=== PATIENT | female | born 1975 | race American Indian/Alaskan Native ===

== ENCOUNTER 2018-01-03 11:31 | Inpatient (IN) | payer MEDICARE ==
[2018-01-03] MEDS ORDERED: MORPHINE IV ONE (12:16)
[2018-01-03] MEDS ORDERED: ZOFRAN IV ONE (12:16)
--- NOTE | 2018-01-03 12:20 | Emergency Department Report ---
ED General Adult HPI - General Chief complaint: Weakness Stated complaint: GENERAL WEAKNESS Time Seen by Provider: 01/03/18 11:55 Source: patient Mode of arrival: Stretcher Limitations: No Limitations - History of Present Illness Initial comments: Mrs. Baez is a very pleasant 42-year-old female with history of end-stage renal disease on hemodialysis for the past 11 years. She also has a history of coronary artery disease status post CABG. She has a history of diabetes. Ms. Baez lives in [facility]. She is currently staying at a hotel with her fianc for her daughter's wedding. She is quite upset because she is likely going to miss her daughter's wedding which is scheduled to began within the next 2 hours. She presents with generalized weakness and overall tingling throughout her body. She is highly concerned for hypocalcemia. On December 11, she had resection of her parathyroid glands. She is currently taking Tums for calcium supplementation. [place] hemod[place] in [place] hometown. She arranged for dialysis session tomorrow scheduled at [facility] on [facility]. -: Gradual, days(s) (1) Location: upper extremity, lower extremity Severity scale (0 -10): 8 Quality: other (tingling) Consistency: constant Improves with: cold therapy Worsens with: none Associated Symptoms: malaise. denies: confusion, chest pain, cough, diaphoresis , fever/chills, headaches, loss of appetite, nausea/vomiting, rash, seizure, shortness of breath, syncope, weakness - Related Data Home Medications Medication Instructions Recorded Confirmed Last Taken Acetaminophen [Tylenol Extra 500 mg PO DAILY PRN 01/03/18 01/03/18 Unknown Strength] Aspirin [Aspirin BABY CHEW TAB] 81 mg PO DAILY 01/03/18 01/03/18 Unknown Calcium Carbonate [Tums] 1 tab PO DAILY 01/03/18 01/03/18 Unknown LORazepam [Ativan] 0.5 mg PO Q6H PRN 01/03/18 01/03/18 Unknown Sevelamer Carbonate [Renvela] 650 mg PO AC 01/03/18 01/03/18 Unknown amLODIPine [Norvasc] 10 mg PO DAILY 01/03/18 01/03/18 Unknown Allergies Allergy/AdvReac Type Severity Reaction Status Date / Time Sulfa (Sulfonamide Allergy Hives Verified 01/03/18 11:42 Antibiotics) ED Review of Systems ROS: Stated complaint: GENERAL WEAKNESS Other details as noted in HPI Comment: All other systems reviewed and negative Constitutional: denies: fever, malaise Respiratory: denies: cough Cardiovascular: denies: chest pain ED Past Medical Hx - Past Medical History Hx Hypertension: Yes Hx Diabetes: Yes Hx Renal Disease: Yes (Dialysis M-W-F) Additional medical history: Scoliosis, Glacoma, Cataracts - Surgical History Additional Surgical History: Left 3rd and 5th toe amputation, A.V graft left arm , Cardia double Bypass, thyroidectomy - Social History Smoking Status: Former Smoker Substance Use Type: None - Medications Home Medications: Home Medications Medication Instructions Recorded Confirmed Last Taken Type Acetaminophen [Tylenol Extra 500 mg PO DAILY PRN 01/03/18 01/03/18 Unknown History Strength] Aspirin [Aspirin BABY CHEW TAB] 81 mg PO DAILY 01/03/18 01/03/18 Unknown History Calcium Carbonate [Tums] 1 tab PO DAILY 01/03/18 01/03/18 Unknown History LORazepam [Ativan] 0.5 mg PO Q6H PRN 01/03/18 01/03/18 Unknown History Sevelamer Carbonate [Renvela] 650 mg PO AC 01/03/18 01/03/18 Unknown History amLODIPine [Norvasc] 10 mg PO DAILY 01/03/18 01/03/18 Unknown History ED Physical Exam - General Limitations: No Limitations General appearance: alert, in no apparent distress, other (very pleasant but tearful) - Head Head exam: Present: atraumatic, normocephalic - Eye Eye exam: Present: normal appearance, other (opaque lens right eye cataract present, left pupil reactive from 5 mm to 3 mm) - ENT ENT exam: Present: mucous membranes moist - Neck Neck exam: Present: normal inspection - Respiratory Respiratory exam: Present: normal lung sounds bilaterally. Absent: respiratory distress, wheezes, rales, rhonchi - Cardiovascular Cardiovascular Exam: Present: regular rate, normal rhythm, normal heart sounds, other (sternotomy scar present). Absent: bradycardia, tachycardia, systolic murmur, diastolic murmur, rubs, gallop - GI/Abdominal GI/Abdominal exam: Present: soft, normal bowel sounds. Absent: distended, tenderness, guarding, rebound - Extremities Exam Extremities exam: Present: normal inspection, other (left upper extremity AV hemodialysis access positive thrill and +bruit) - Back Exam Back exam: Present: normal inspection - Neurological Exam Neurological exam: Present: alert, oriented X3 - Psychiatric Psychiatric exam: Present: normal affect, normal mood - Skin Skin exam: Present: warm, dry, intact, normal color. Absent: rash ED Course Vital Signs 01/03/18 01/03/18 01/03/18 11:42 12:13 12:48 Temperature 97.8 F 98 F Pulse Rate 78 85 Respiratory 20 20 20 Rate Blood Pressure 168/93 Blood Pressure 161/93 [Right] O2 Sat by Pulse 100 99 Oximetry 01/03/18 01/03/18 13:18 13:45 Temperature Pulse Rate Respiratory 18 18 Rate Blood Pressure Blood Pressure [Right] O2 Sat by Pulse 100 Oximetry ED Medical Decision Making - Lab Data Result diagrams: 01/03/18 12:49 01/03/18 12:49 - EKG Data 01/03/18 13:06 EKG obtained 1300 Normal sinus rhythm rate of 80 bpm normal axis markedly prolonged QT interval QTC 533 ms normal amplitude T waves no signs of ischemia no signs of infarct - Medical Decision Making Ms Baez has tingling and weakness due to hypocalcemia. Hyperkalemia noted on today's labs. 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 Hyperakalemia addressed with medications. calcium repletion initiated in ED. Dr. Kelley will admit to hospitalist service Critical Care Time: Yes Critical care time in (mins) excluding proc time.: 40 Critical care attestation.: If time is entered above; I have spent that time in minutes in the direct care of this critically ill patient, excluding procedure time. ED Disposition Clinical Impression: Hypocalcemia, Hyperkalemia, ESRD (end stage renal disease), H/O parathyroidectomy Disposition: OP ADMIT IP TO THIS HOSP Is pt being admited?: Yes Does the pt Need Aspirin: No Condition: Stable Time of Disposition: 14:01
[2018-01-03 13:15] LABS: Basophils # (Auto) 0.1 K/mm3 (0.0-0.1); Basophils % (Auto) 0.9 % (0.0-1.8); Eosinophils # (Auto) 0.1 K/mm3 (0.0-0.4); Hematocrit 35.2 % (30.3-42.9); Hemoglobin 11.2 gm/dl (10.1-14.3); Lymphocytes # (Auto) 0.9 K/mm3 (1.2-5.4); Lymphocytes % (Auto) 12.1 % (13.4-35.0); Mean Corpuscular HGB Conc 32 % (30-34); Mean Corpuscular Hemoglobin 30 pg (28-32); Mean Corpuscular Volume 93 fl (79-97); Monocytes # (Auto) 0.5 K/mm3 (0.0-0.8); Monocytes % (Auto) 6.2 % (0.0-7.3); Platelet Count 203 K/mm3 (140-440); Red Blood Count 3.79 M/mm3 (3.65-5.03); Red Cell Distribution Width 16.7 % (13.2-15.2)
[2018-01-03 13:29] LABS: Albumin 3.8 g/dL (3.9-5)
[2018-01-03] MEDS ORDERED: REGLAN ONE (13:36)
[2018-01-03] MEDS ORDERED: REGLAN IV ONE (13:37)
[2018-01-03] MEDS ORDERED: SODIUM BICARBONATE IV ONE (13:58)
[2018-01-03] MEDS ORDERED: D50W (25GM) Syringe IV ONE (13:58)
[2018-01-03] MEDS ORDERED: PROVENTIL IH ONE (13:58)
[2018-01-03] MEDS ORDERED: HumuLIN R IV ONE (13:58)
[2018-01-03] MEDS ORDERED: ZOFRAN IV PRN (14:17)
[2018-01-03] MEDS ORDERED: TYLENOL PO PRN ×2 (14:17→15:58)
[2018-01-03] MEDS ORDERED: SODIUM CHLORIDE FLUSH SYRINGE 10 ML IV PRN (14:17)
[2018-01-03] MEDS ORDERED: PROVENTIL IH PRN (14:17)
--- NOTE | 2018-01-03 14:20 | History and Physical Report ---
History of Present Illness Chief complaint: I dont feel good History of present illness: 42 YO Female with ESRD on HD (M,W,F) who was last dialyzed on ,CAD S/P CABG, Obesity, DM, HTN presents to ED for evaluation. Pt states that she has experienced generalized weakness and tingling throughout her body over the past 1 day with persistent symptoms over the past 4 hours. Pt denies mulcle spasm, muscle cramping, fever, chills, CP, Palpitations, Syncope, BRBPR, Unintentional weight loss, night sweats. Pt seen and evaluated in ED and found to have ESRD needing urgent dialysis, hyperkalemia. No peaked T waves on EKG. Nephrology consulted in ED. Pt admitted to medical floor. Past History Past Medical History: CAD, diabetes, ESRD, hypertension Past Surgical History: CABG, thyroidectomy, Other (Toe Amputation, ) Social history: single. denies: smoking, alcohol abuse, prescription drug abuse Family history: CAD, diabetes, hypertension Medications and Allergies Allergies Allergy/AdvReac Type Severity Reaction Status Date / Time Sulfa (Sulfonamide Allergy Hives Verified 01/03/18 11:42 Antibiotics) Home Medications Medication Instructions Recorded Confirmed Last Taken Type Acetaminophen [Tylenol Extra 500 mg PO DAILY PRN 01/03/18 01/03/18 Unknown History Strength] Aspirin [Aspirin BABY CHEW TAB] 81 mg PO DAILY 01/03/18 01/03/18 Unknown History Calcium Carbonate [Tums] 1 tab PO DAILY 01/03/18 01/03/18 Unknown History LORazepam [Ativan] 0.5 mg PO Q6H PRN 01/03/18 01/03/18 Unknown History Sevelamer Carbonate [Renvela] 650 mg PO AC 01/03/18 01/03/18 Unknown History amLODIPine [Norvasc] 10 mg PO DAILY 01/03/18 01/03/18 Unknown History Active Meds: Active Medications Acetaminophen (Tylenol) 650 mg PO Q4H PRN PRN Reason: Pain MILD(1-3)/Fever >100.5/DAWKINS Albuterol (Proventil) 2.5 mg IH Q4HRT PRN PRN Reason: Shortness Of Breath Calcium Gluconate 2,000 mg/ (Sodium Chloride) 120 mls @ 240 mls/hr IV ONCE ONE Stop: 01/03/18 15:29 Ondansetron HCl (Zofran) 4 mg IV Q8H PRN PRN Reason: Nausea And Vomiting Sodium Chloride (Sodium Chloride Flush Syringe 10 Ml) 10 ml IV BID IRASEMA Sodium Chloride (Sodium Chloride Flush Syringe 10 Ml) 10 ml IV PRN PRN PRN Reason: LINE FLUSH Review of Systems Constitutional: weakness Eyes: right: loss of vision Ears, nose, mouth and throat: no ear pain, no ear discharge, no tinnitis, no decreased hearing, no nose pain, no nasal congestion, no nasal discharge Breasts: no change in shape, no swelling, no mass Cardiovascular: no chest pain, no orthopnea, no palpitations, no rapid/ irregular heart beat Respiratory: no cough, no cough with sputum, no excessive sputum, no hemoptysis , no shortness of breath, no dyspnea on exertion Gastrointestinal: no nausea, no vomiting, no diarrhea, no constipation, no change in bowel habits Genitourinary Female: no pelvic pain, no flank pain, no menorrhagia, no dysuria , no urinary frequency, no urgency Rectal: no pain, no incontinence, no bleeding Musculoskeletal: no neck stiffness, no neck pain, no shooting arm pain, no arm numbness/tingling, no low back pain, no shooting leg pain Integumentary: no rash, no pruritis, no redness, no sores, no wounds, no jaundice, no boils Neurological: no head injury, no transient paralysis, no paralysis, no weakness , no parathesias, no numbness, no tingling Psychiatric: no anxiety, no memory loss, no change in sleep habits, no sleep disturbances, no insomnia, no change in appetite Endocrine: no cold intolerance, no heat intolerance, no excessive thirst, no polydipsia, no polyuria, no nocturia Hematologic/Lymphatic: no easy bruising, no easy bleeding, no lymphadenopathy, no lymphedema Allergic/Immunologic: no urticaria, no allergic rhinitis, no wheezing, no persistent infections, no anaphylaxis, no angioedema Exam - Constitutional Vitals: Temp Pulse Resp BP Pulse Ox 98 F 85 18 161/93 100 01/03/18 12:13 01/03/18 12:13 01/03/18 13:45 01/03/18 12:13 01/03/18 13:45 General appearance: Present: mild distress - EENT Eyes: Present: PERRL ENT: hearing intact, clear oral mucosa - Neck Neck: Present: supple, normal ROM - Respiratory Respiratory effort: normal Respiratory: bilateral: diminished - Cardiovascular Heart Sounds: Present: S1 & S2. Absent: rub, click - Extremities Extremities: pulses symmetrical, No edema Peripheral Pulses: within normal limits - Abdominal General gastrointestinal: Present: soft, non-tender, non-distended, normal bowel sounds Female genitourinary: Present: normal - Integumentary Integumentary: Present: clear, warm, dry - Musculoskeletal Musculoskeletal: gait normal, strength equal bilaterally - Psychiatric Psychiatric: appropriate mood/affect, intact judgment & insight - Neurologic Neurologic: CNII-XII intact, moves all extremities Results - Labs CBC & Chem 7: 01/03/18 12:49 01/03/18 12:49 Labs: Abnormal lab results 01/03/18 01/03/18 Range/Units 12:49 12:49 RDW 16.7 H (13.2-15.2) % Lymph % (Auto) 12.1 L (13.4-35.0) % Lymph # 0.9 L (1.2-5.4) K/mm3 Seg Neutrophils % 78.8 H (40.0-70.0) % Potassium 6.4 H* (3.6-5.0) mmol/L Chloride 92.9 L (98-107) mmol/L BUN 44 H (7-17) mg/dL Creatinine 7.5 H (0.7-1.2) mg/dL Glucose 129 H (65-100) mg/dL Calcium 5.0 L* (8.4-10.2) mg/dL Alkaline Phosphatase 1789 H (35-129) units/L Total Protein 8.6 H (6.3-8.2) g/dL Albumin 3.8 L (3.9-5) g/dL Assessment and Plan - Patient Problems (1) ESRD (end stage renal disease) Current Visit: Yes Status: Acute Plan to address problem: Nephrology consulted in ED, monitor uop q shift, repeat bmp, dialysis as per renal team. (2) Hyperkalemia Current Visit: Yes Status: Acute Plan to address problem: Calcium gluconate, kayexelate, urgent dialysis. (3) Hypertensive urgency Current Visit: Yes Status: Acute Plan to address problem: monitor bp q shift, continue medical management, urgent dialysis. (4) DVT prophylaxis Current Visit: Yes Status: Acute
--- NOTE | 2018-01-03 14:23 | Consultation ---
History of Present Illness - Reason for Consult Consult date: 01/03/18 end stage renal disease, hyperkalemia Requesting physician: SONNY VALENTIN - History of Present Illness Mrs. Baez is a very pleasant 42-year-old female with history of end-stage renal disease on hemodialysis for the past 11 years. She also has a history of coronary artery disease status post CABG. She has a history of diabetes. Ms. Baez lives in [facility]. She is currently staying at a hotel with her fianc for her daughter's wedding. She is quite upset because she is likely going to miss her daughter's wedding which is scheduled to began within the next 2 hours. She presents with generalized weakness and overall tingling throughout her body. She is highly concerned for hypocalcemia. On December 11, she had resection of her parathyroid glands. She is currently taking Tums for calcium supplementation. Last hemod[place] on in her hometown. She arranged for dialysis session tomorrow scheduled at [facility] on [facility]. Past History Past Medical History: CAD, diabetes, dialysis, hypertension, other ( hyperparathyroidism ) Past Surgical History: CABG, Other (parathyroidectomy. AVF creation) Social history: no significant social history Family history: no significant family history Medications and Allergies Allergies Allergy/AdvReac Type Severity Reaction Status Date / Time Sulfa (Sulfonamide Allergy Hives Verified 01/03/18 11:42 Antibiotics) Home Medications Medication Instructions Recorded Confirmed Last Taken Type Acetaminophen [Tylenol Extra 500 mg PO DAILY PRN 01/03/18 01/03/18 Unknown History Strength] Aspirin [Aspirin BABY CHEW TAB] 81 mg PO DAILY 01/03/18 01/03/18 Unknown History Calcium Carbonate [Tums] 1 tab PO DAILY 01/03/18 01/03/18 Unknown History LORazepam [Ativan] 0.5 mg PO Q6H PRN 01/03/18 01/03/18 Unknown History Sevelamer Carbonate [Renvela] 650 mg PO AC 01/03/18 01/03/18 Unknown History amLODIPine [Norvasc] 10 mg PO DAILY 01/03/18 01/03/18 Unknown History Active Meds: Active Medications Acetaminophen (Tylenol) 650 mg PO Q4H PRN PRN Reason: Pain MILD(1-3)/Fever >100.5/DAWKINS Albuterol (Proventil) 2.5 mg IH Q4HRT PRN PRN Reason: Shortness Of Breath Calcium Gluconate 2,000 mg/ (Sodium Chloride) 120 mls @ 240 mls/hr IV ONCE ONE Stop: 01/03/18 15:29 Ondansetron HCl (Zofran) 4 mg IV Q8H PRN PRN Reason: Nausea And Vomiting Sodium Chloride (Sodium Chloride Flush Syringe 10 Ml) 10 ml IV BID IRASEMA Sodium Chloride (Sodium Chloride Flush Syringe 10 Ml) 10 ml IV PRN PRN PRN Reason: LINE FLUSH Review of Systems All systems: negative (except as noted above) Exam - Vital Signs Vital signs: Vital Signs Temp Pulse Resp BP Pulse Ox 97.8 F 78 20 168/93 100 01/03/18 11:42 01/03/18 11:42 01/03/18 11:42 01/03/18 11:42 01/03/18 11:42 - General Appearance General appearance: well-developed, well-nourished, appears stated age EENT: mucous membranes moist, other (blind right eye) Neck: Present: neck supple, trachea midline. Absent: JVD/HJR, Masses Results - Lab Results 01/03/18 12:49 01/03/18 15:24 Most recent lab results Calcium 5.0 mg/dL (8.4-10.2) L* 01/03/18 12:49 Phosphorus 2.70 mg/dL (2.5-4.5) 01/03/18 12:49 Magnesium 2.00 mg/dL (1.7-2.3) 01/03/18 12:49 Assessment and Plan impression * Symptomatic hypocalcemia . Status post recent parathyroidectomy * Hyperkalemia * ESRD * anemia * Diabetes * Coronary artery disease Recommendations * Arrange for urgent dialysis today for correction of hyperkalemia * IV push, calcium, followed by calcium drip * Add oral calcitriol as well as oral calcium supplement * Monitor calcium levels closely * No IV, BP or venipuncture in her access arm * Adjust diet and meds for ESRD state * binders with diet * Procrit with dialysis * Thank you very much for the consultation. Shall follow along with you
[2018-01-03] MEDS ORDERED: NACL 0.9% 100 ML IV PRN (14:25)
[2018-01-03] MEDS ORDERED: TUMS PO ONE (14:27)
[2018-01-03] MEDS ORDERED: CALCIUM GLUCONATE IV SCH (15:00)
[2018-01-03] MEDS ORDERED: D5NS IV SCH (15:00)
[2018-01-03] MEDS ORDERED: CALCIUM GLUCONATE 2,000 MG in NACL 0.9% 100 ML IV ONE (15:00)
[2018-01-03] MEDS: ROCALTROL PO SCH (15:38)
[2018-01-03] MEDS ORDERED: ATIVAN PO PRN (15:58)
[2018-01-03 16:13] LABS: Calcium 4.7 mg/dL (8.4-10.2)
[2018-01-03] MEDS: RENVELA PO SCH (17:27)
[2018-01-03] MEDS ORDERED: BENADRYL IV STA (18:00)
[2018-01-03] MEDS ORDERED: NACL 0.9 (PRIMING MACHINE ONLY DIALYSIS) MC ONE (18:03)
[2018-01-03] MEDS: SODIUM CHLORIDE FLUSH SYRINGE 10 ML IV SCH (22:29)
[2018-01-03] MEDS ORDERED: CALCIUM GLUCONATE IV ONE (23:00)
[2018-01-03] MEDS ORDERED: D5NS IV ONE (23:00)
[2018-01-03 23:45] LABS: Calcium 7.4 mg/dL (8.4-10.2)
[2018-01-04] MEDS: RENVELA PO SCH ×3 (09:01→18:46)
[2018-01-04] MEDS: SODIUM CHLORIDE FLUSH SYRINGE 10 ML IV SCH (09:04)
[2018-01-04] MEDS ORDERED: BABY ASPIRIN PO SCH (10:00)
[2018-01-04] MEDS ORDERED: NORVASC PO SCH (10:00)
[2018-01-04] MEDS ORDERED: TUMS PO SCH (10:00)
--- NOTE | 2018-01-04 10:14 | Discharge Summary ---
Providers - Providers Date of Admission: 01/03/18 14:17 Date of discharge: 01/04/18 Attending physician: EFRAÍN THAPA 01/03/18 13:57 Consult to Physician [CONS] Stat Comment: Consulting Provider: GEOVANNA CRUZ Physician Instructions: Reason For Exam: hyperkalemia ESRD hypocalcemia Primary care physician: HEATHER LUGO Hospitalization Reason for admission: missed, hypocalcemia Condition: Stable Hospital course: This is a 42-year-old female with history of coronary artery disease s/p CABG, DM and end-stage renal disease on hemodialysis for the past 11 years who presented with generalized weakness and overall tingling throughout her body. She was highly concerned for hypocalcemia. On December 11, she had resection of her parathyroid glands. She was taking Tums for calcium supplementation. Patient was visiting from out of town for her daughter's wedding. Last hemod[place] session on in her hometown. In the emergency room, patient was noted to have hypocalcemia and hyperkalemia. Therefore, patient was admitted and underwent urgent hemodialysis correction of her hyperkalemia. Patient also received IV calcium and oral calcitriol for calcium supplementation. Her potassium stabilized and calcium improved. Patient is felt to have received maximal hospital benefit and will discharge home. Dedicated discharge time 35 minutes. Disposition: - TO HOME OR SELFCARE Time spent for discharge: 35 - Discharge Diagnoses (1) ESRD (end stage renal disease) Status: Acute (2) H/O parathyroidectomy Status: Acute (3) Hyperkalemia Status: Acute (4) Hypocalcemia Status: Acute Core Measure Documentation - Palliative Care Palliative Care/ Comfort Measures: Not Applicable - Core Measures Any of the following diagnoses?: none Exam - Constitutional Vitals: Temp Pulse Resp BP Pulse Ox 99.2 F 86 18 117/64 100 01/04/18 07:08 01/04/18 07:08 01/04/18 07:08 01/04/18 07:08 01/04/18 07:08 General appearance: Present: no acute distress, well-nourished - EENT Eyes: Present: PERRL ENT: hearing intact, clear oral mucosa - Neck Neck: Present: supple, normal ROM - Respiratory Respiratory effort: normal Respiratory: bilateral: CTA - Cardiovascular Heart Sounds: Present: S1 & S2. Absent: rub, click - Extremities Extremities: pulses symmetrical, No edema Peripheral Pulses: within normal limits - Abdominal General gastrointestinal: Present: soft, non-tender, non-distended, normal bowel sounds Female genitourinary: Present: normal - Integumentary Integumentary: Present: clear, warm, dry - Musculoskeletal Musculoskeletal: gait normal, strength equal bilaterally - Psychiatric Psychiatric: appropriate mood/affect, intact judgment & insight - Neurologic Neurologic: CNII-XII intact, moves all extremities Plan Activity: no restrictions Weight Bearing Status: Weight Bear as Tolerated Diet: regular Follow up with: HEATHER LUGO MD [Primary Care Provider] - 7 Days Prescriptions: Calcitriol [Rocaltrol] 0.5 mcg PO DAILY #10 capsule
--- NOTE | 2018-01-04 11:04 | Progress Note ---
Assessment and Plan Impression * Symptomatic hypocalcemia . Status post recent parathyroidectomy * Hyperkalemia * ESRD * anemia * Diabetes * Coronary artery disease Recommendations * IV push, calcium, followed by calcium drip * Added oral calcitriol as well as oral calcium supplement * Monitor calcium levels closely * No IV, BP or venipuncture in her access arm * Adjust diet and meds for ESRD state * binders with diet * Procrit with dialysis Subjective Date of service: 01/04/18 Principal diagnosis: esrd, hypocalcemia Interval history: resting well in bed today Objective - Exam Narrative Exam: General appearance: well-developed, well-nourished, appears stated age EENT: mucous membranes moist, other (blind right eye) Neck: Present: neck supple, trachea midline. Absent: JVD/HJR, Masses - Vital Signs Vital signs: Vital Signs - 12hr 01/04/18 01/04/18 00:37 07:08 Temperature 99.2 F 99.2 F Pulse Rate 90 86 Respiratory 18 18 Rate Blood Pressure 117/66 117/64 O2 Sat by Pulse 100 100 Oximetry - Lab 01/03/18 12:49 01/04/18 06:01 Most recent lab results Calcium 6.0 mg/dL (8.4-10.2) L D 01/04/18 06:01 Phosphorus 2.70 mg/dL (2.5-4.5) 01/03/18 12:49 Magnesium 2.00 mg/dL (1.7-2.3) 01/03/18 12:49
[2018-01-04] MEDS: ROCALTROL PO SCH (12:08)
[2018-01-04] MEDS ORDERED: BENADRYL IV STA (13:47)
[2018-01-04] MEDS ORDERED: NACL 0.9 (PRIMING MACHINE ONLY DIALYSIS) MC ONE (14:01)
[2018-01-04] MEDS ORDERED: CALCIUM GLUCONATE 2,000 MG in NACL 0.9% 250ML 250 ML IV ONE (16:00)
[2018-01-04 19:01] VITALS: BP 113/70
== END 2018-01-04 19:30 | disposition home health service (06) | DRG 682 ==
LOC: ED 11:31 → 3A 14:17
PROVIDERS: ADMIT Internal Medicine; ATTEND Hospitalist
PROC: 5A1D70Z Performance of Urinary Filtration, Intermittent, Less than 6 Hours Per Day (ICD-10-PCS; principal; 2018-01-03)
PROC: 5A1D70Z Performance of Urinary Filtration, Intermittent, Less than 6 Hours Per Day (ICD-10-PCS; 2018-01-04)
DX: I12.0 Hypertensive chronic kidney disease with stage 5 chronic kidney disease or end stage renal disease (principal); N18.6 End stage renal disease; E87.5 Hyperkalemia; E83.51 Hypocalcemia; I16.0 Hypertensive urgency; I25.10 Atherosclerotic heart disease of native coronary artery without angina pectoris; M41.9 Scoliosis, unspecified; H40.9 Unspecified glaucoma; E89.0 Postprocedural hypothyroidism; E11.22 Type 2 diabetes mellitus with diabetic chronic kidney disease; Z88.2 Allergy status to sulfonamides; Z95.1 Presence of aortocoronary bypass graft; Z79.82 Long term (current) use of aspirin; Z79.899 Other long term (current) drug therapy; Z99.2 Dependence on renal dialysis; Z87.891 Personal history of nicotine dependence; Z89.422 Acquired absence of other left toe(s); Z82.49 Family history of ischemic heart disease and other diseases of the circulatory system; Z83.3 Family history of diabetes mellitus
CPT/HCPCS: 36415; 80048; 80053; 82330; 82962; 83735; 84100; 85025; 93005; 93010; 96374; 96375; 99291; J0610; J1200; J1815; J2270; J2405; J2765; J7030; J7042; J7050